=== PATIENT | male | born 1935 | race Caucasian/White ===

== ENCOUNTER → 2016-05-21 | Outpatient (REF) | payer MEDICARE ==
[2016-05-21 17:02] LABS: MEAN CORPUSCULAR HEMOGLOBIN 33.5 pg (27.0-33.0); MEAN CORPUSCULAR HGB CONC 34.7 g/dl (32.0-36.5); MEAN CORPUSCULAR VOLUME 96.5 fl (80.0-96.0); WHITE BLOOD COUNT 6.9 K/mm3 (4.0-10.0)
[2016-05-21 17:13] LABS: ALBUMIN 3.9 GM/DL (3.2-5.2); ALBUMIN/GLOBULIN RATIO 1.22 (1.00-1.93); ALKALINE PHOSPHATASE 99 U/L (45-117); ALT/SGPT 29 U/L (12-78); ANION GAP 5 MEQ/L (8-16); AST/SGOT 24 U/L (15-37); BILIRUBIN,TOTAL 0.8 MG/DL (0.2-1.0); BLOOD UREA NITROGEN 17 MG/DL (7-18); CALCIUM LEVEL 9.5 MG/DL (8.8-10.2); CARBON DIOXIDE LEVEL 30 MEQ/L (21-32); CHLORIDE LEVEL 104 MEQ/L (98-107); CHOLESTEROL LEVEL 128 MG/DL (<200); GLOMERULAR FILTRATION RATE > 60.0 (>42); GLUCOSE, FASTING 102 MG/DL (83-110); POTASSIUM SERUM 4.6 MEQ/L (3.5-5.1); SODIUM LEVEL 139 MEQ/L (136-145); TOTAL PROTEIN 7.1 GM/DL (6.4-8.2); TRIGLYCERIDES LEVEL 77 MG/DL (<150)
== END ==
LOC: M SFHCCAPE 07:29
PROVIDERS: ATTEND Family Medicine
DX: M35.3 Polymyalgia rheumatica (principal); I11.9 Hypertensive heart disease without heart failure; E78.2 Mixed hyperlipidemia; Z12.5 Encounter for screening for malignant neoplasm of prostate
CPT/HCPCS: 36415; 80053; 80061; 85027; 85652; G0103

== ENCOUNTER → 2016-07-07 | Outpatient (CLI) | payer MEDICARE ==
[~2016-07-07] MED LIST: GASTROGRAFIN SOLUTION 30ML (Q9963) As Ordered ONE; ISOVUE-370 76% 100ML VIAL (Q9967) As Ordered ONE
--- NOTE | 2016-07-07 17:55 | REP ---
CT ABDOMEN: HISTORY: Inguinal nerve entrapment syndrome. COMPARISON: None. CONTRAST: 100 mL of Isovue-370 The lung bases are within normal limits for the patient's age showing basilar fibrotic change. There are no pleural or pericardial effusions. The liver, gallbladder, spleen, pancreas, adrenal glands and kidneys are within normal limits. The abdominal aorta and periaortic regions are within normal limits. There is no free intraabdominal fluid or air. The bowel loops and their mesenteries are within normal limits. CT pelvis: There is no free pelvic fluid or air. There is no pelvic mass or adenopathy. The inguinal regions are within normal limits. There is sigmoid colon diverticulosis. There is corpora amylacea. Bone window technique throughout the exam shows age-related spinal degenerative changes. Age-related sacroiliac joint degenerative changes are also present, left greater than right. IMPRESSION: There is no acute intraabdominal or intrapelvic disease. There is no roque evidence of an inguinal mass, however, there are multiple vessels within the left inguinal ring, which are mildly dilated and could possibly be secondary to the patient's symptoms. It cannot be stated with certainty and needs to be correlated clinically. The finding is a very soft CT finding. Other findings as described above. Signed by Yuriy Magallon DO 07/07/2016 06:04 P
== END ==
LOC: M RAD 14:34
PROVIDERS: ATTEND Family Medicine
DX: G57.80 Other specified mononeuropathies of unspecified lower limb (principal); R15.9 Full incontinence of feces
CPT/HCPCS: 74177; Q9963; Q9967

== ENCOUNTER → 2016-08-06 | Outpatient (CLI) | payer MEDICARE ==
[~2016-08-06] VITALS: Ht 182.9 cm; Wt 73.9 kg
[~2016-08-06] MED LIST changes: +ASPI1TAB PO; +ATOR40TA75 PO; +FLUOROURACIL TOP; -GASTROGRAFIN SOLUTION 30ML (Q9963) As Ordered ONE; -ISOVUE-370 76% 100ML VIAL (Q9967) As Ordered ONE; +LATA5OPD OU; +LISI10TA4 PO; +MELO7.5T7 PO; +NS 1,000 ML IV ONE; +OMEP20CA3 PO; +PROPOFOL 200 MG/20 ML VIAL As Ordered ONE; +RAPA8CAP PO; +TIMO0.5S29 OU; +VITA100067 PO; +VITA500T3 PO
--- NOTE | 2016-08-06 14:36 | ROOR ---
Patient Name: Ac Barnett Procedure Date: 08/06/2016 2:17 PM Date of : 1935 Age: 81 Room: [facility] Gender: Male Note Status: Finalized Procedure: Colonoscopy Indications: Screening for colorectal malignant neoplasm Providers: Ricardo Portillo Jr, MD Referring MD: Horace Tran MD Requesting Provider: Medicines: Propofol per Anesthesia Complications: No immediate complications. Procedure: Pre-Anesthesia Assessment: - Prior to the procedure, a History and Physical was performed, and patient medications and allergies were reviewed. The patient is competent. The risks and benefits of the procedure and the sedation options and risks were discussed with the patient. All questions were answered and informed consent was obtained. Patient identification and proposed procedure were verified by the physician and the nurse in the pre-procedure area and in the procedure room. Mental Status Examination: alert and oriented. Airway Examination: normal oropharyngeal airway and neck mobility. Respiratory Examination: clear to auscultation. CV Examination: normal. ASA Grade Assessment: II - A patient with mild systemic disease. After reviewing the risks and benefits, the patient was deemed in satisfactory condition to undergo the procedure. The anesthesia plan was to use moderate sedation / analgesia (conscious sedation). Immediately prior to administration of medications, the patient was re-assessed for adequacy to receive sedatives. The heart rate, respiratory rate, oxygen saturations, blood pressure, adequacy of pulmonary ventilation, and response to care were monitored throughout the procedure. The physical status of the patient was re-assessed after the procedure. The Colonoscope was introduced through the anus and advanced to the cecum, identified by appendiceal orifice and ileocecal valve. The colonoscopy was performed without difficulty. The patient tolerated the procedure well. The quality of the bowel preparation was adequate and good. Findings: The perianal and digital rectal examinations were normal. Pertinent negatives include normal sphincter tone, no palpable rectal lesions and no anal lesion or abnormality was detected. Multiple small and large-mouthed diverticula were found in the sigmoid colon. Scattered small and large-mouthed diverticula were found in the descending colon, transverse colon and ascending colon. The rectum, recto-sigmoid colon, cecum, appendiceal orifice and ileocecal valve appeared normal. Impression: - Diverticulosis in the sigmoid colon. - Diverticulosis in the descending colon, in the transverse colon and in the ascending colon. - The rectum, recto-sigmoid colon, cecum, appendiceal orifice and ileocecal valve are normal. - No specimens collected. Recommendation: - Discharge patient to home (ambulatory). - Repeat colonoscopy in 10 years for screening purposes. Ricardo Portillo MD Ricardo Portillo Jr, MD 08/06/2016 2:36:14 PM This report has been signed electronically. Number of Addenda: 0 Note Initiated On: 08/06/2016 2:17 PM Estimated Blood Loss: Estimated blood loss: none.
[2016-08-06 15:16] VITALS: BP 144/66
== END | disposition home or self-care (01) ==
LOC: M OPP 13:39
PROVIDERS: ATTEND Surgery
DX: Z12.11 Encounter for screening for malignant neoplasm of colon (principal); K57.30 Diverticulosis of large intestine without perforation or abscess without bleeding; I10 Essential (primary) hypertension; E78.5 Hyperlipidemia, unspecified; R12 Heartburn; K21.9 Gastro-esophageal reflux disease without esophagitis; N40.1 Benign prostatic hyperplasia with lower urinary tract symptoms; R15.1 Fecal smearing; H91.90 Unspecified hearing loss, unspecified ear; Z88.0 Allergy status to penicillin; Z88.2 Allergy status to sulfonamides; Z88.8 Allergy status to other drugs, medicaments and biological substances; Z79.82 Long term (current) use of aspirin; Z79.899 Other long term (current) drug therapy

== ENCOUNTER → 2017-05-24 | Outpatient (REF) | payer MEDICARE ==
[2017-05-24 16:50] LABS: HEMATOCRIT 42.7 % (42.0-52.0); HEMOGLOBIN 14.8 g/dl (13.5-17.5); MEAN CORPUSCULAR HEMOGLOBIN 33.3 pg (27.0-33.0); MEAN CORPUSCULAR HGB CONC 34.7 g/dl (32.0-36.5); PLATELET COUNT, AUTOMATED 158 10^3/uL (150-450); RED BLOOD COUNT 4.45 10^6/uL (4.30-6.10); RED CELL DISTRIBUTION WIDTH 12.1 % (11.5-14.5); WHITE BLOOD COUNT 6.8 10^3/uL (4.0-10.0)
[2017-05-24 17:15] LABS: ALBUMIN 3.9 GM/DL (3.2-5.2); ALBUMIN/GLOBULIN RATIO 1.26 (1.00-1.93); ALKALINE PHOSPHATASE 91 U/L (45-117); ALT/SGPT 23 U/L (12-78); ANION GAP 8 MEQ/L (8-16); AST/SGOT 24 U/L (7-37); BILIRUBIN,TOTAL 0.8 MG/DL (0.2-1.0); BLOOD UREA NITROGEN 14 MG/DL (7-18); CALCIUM LEVEL 8.9 MG/DL (8.8-10.2); CARBON DIOXIDE LEVEL 24 MEQ/L (21-32); CHLORIDE LEVEL 110 MEQ/L (98-107); CHOLESTEROL LEVEL 125 MG/DL (<200); CHOLESTEROL RISK RATIO 2.777 (<5); CREATININE FOR GFR 1.07 MG/DL (0.70-1.30); GLOMERULAR FILTRATION RATE > 60.0 (>35); GLUCOSE, FASTING 98 MG/DL (70-100); HDL CHOLESTEROL 45 MG/DL (>40); LDL CHOLESTEROL 61.4 MG/DL (<100); NON-HDL-C 80 MG/DL; POTASSIUM SERUM 4.4 MEQ/L (3.5-5.1); SODIUM LEVEL 142 MEQ/L (136-145); TRIGLYCERIDES LEVEL 93 MG/DL (<150)
[2017-05-24 17:17] LABS: VITAMIN B12 LEVEL 678 PG/ML (247-911)
== END ==
LOC: M SFHCCAPE 08:03
DX: D51.9 Vitamin B12 deficiency anemia, unspecified (principal); I11.9 Hypertensive heart disease without heart failure; E78.2 Mixed hyperlipidemia; Z12.5 Encounter for screening for malignant neoplasm of prostate
CPT/HCPCS: 82607

== ENCOUNTER → 2017-12-09 | Outpatient (REF) | payer MEDICARE ==
[~2017-12-09] MED LIST changes: -NS 1,000 ML IV ONE; -PROPOFOL 200 MG/20 ML VIAL As Ordered ONE
== END ==
LOC: M SFHCLERA 10:21
PROVIDERS: ATTEND Dermatology
DX: C44.42 Squamous cell carcinoma of skin of scalp and neck (principal); L82.0 Inflamed seborrheic keratosis

== ENCOUNTER → 2018-06-20 | Outpatient (REF) | payer MEDICARE ==
[~2018-06-20] MED LIST changes: -ASPI1TAB PO; +ASPI81TA26 PO; +LATA0.0013 OU; -LATA5OPD OU; -RAPA8CAP PO; +RAPA8CAP4 PO
[2018-06-20 17:13] LABS: HEMATOCRIT 41.9 % (42.0-52.0); HEMOGLOBIN 14.4 g/dl (13.5-17.5); MEAN CORPUSCULAR HEMOGLOBIN 33.3 pg (27.0-33.0); MEAN CORPUSCULAR HGB CONC 34.4 g/dl (32.0-36.5); PLATELET COUNT, AUTOMATED 167 10^3/uL (150-450); RED BLOOD COUNT 4.32 10^6/uL (4.30-6.10); WHITE BLOOD COUNT 6.4 10^3/uL (4.0-10.0)
[2018-06-20 17:28] LABS: ALBUMIN 3.6 GM/DL (3.2-5.2); ALT/SGPT 26 U/L (12-78); BILIRUBIN,TOTAL 0.5 MG/DL (0.2-1.0); BLOOD UREA NITROGEN 15 MG/DL (7-18); CALCIUM LEVEL 8.7 MG/DL (8.8-10.2); CARBON DIOXIDE LEVEL 28 MEQ/L (21-32); CHLORIDE LEVEL 107 MEQ/L (98-107); CHOLESTEROL LEVEL 135 MG/DL (<200); CHOLESTEROL RISK RATIO 2.872 (<5); CREATININE FOR GFR 0.99 MG/DL (0.70-1.30); FREE T4 0.93 NG/DL (0.76-1.46); GLOMERULAR FILTRATION RATE > 60.0 (>35); GLUCOSE, FASTING 89 MG/DL (70-100); HDL CHOLESTEROL 47 MG/DL (>40); LDL CHOLESTEROL 62 MG/DL (<100); NON-HDL-C 88 MG/DL; POTASSIUM SERUM 4.3 MEQ/L (3.5-5.1); SODIUM LEVEL 142 MEQ/L (136-145); TOTAL PROTEIN 6.7 GM/DL (6.4-8.2); TRIGLYCERIDES LEVEL 132 MG/DL (<150)
== END ==
LOC: M SFHCCAPE 07:34
PROVIDERS: ATTEND Family Medicine
DX: D51.9 Vitamin B12 deficiency anemia, unspecified (principal); I11.9 Hypertensive heart disease without heart failure; G47.9 Sleep disorder, unspecified; E78.2 Mixed hyperlipidemia; Z12.5 Encounter for screening for malignant neoplasm of prostate
CPT/HCPCS: 80053; 80061; 84439; 84443; 85027; G0103

== ENCOUNTER → 2018-06-23 | Outpatient (CLI) | payer MEDICARE ==
[~2018-06-23] MED LIST changes: +GASTROGRAFIN SOLUTION 30ML (Q9963) As Ordered ONE; +ISOVUE-370 76% 100ML VIAL (Q9967) As Ordered ONE
--- NOTE | 2018-06-23 15:39 | REP ---
CT study of the abdomen and pelvis with IV and oral contrast: History: Generalized abdomen pain. Comparison study: July 07, 2016. CT contrast dose: 100 ml of intravenous Isovue 370. CT findings: Preliminary digital chaser helper radiograph is unremarkable. The lung bases show no evidence of infiltrate or effusion. The liver is normal in size. No mass lesion is seen. There is a tiny cyst in the dome of the liver in the right lobe, unchanged. Spleen is normal in size and homogeneous in texture. Normal adrenal glands are seen bilaterally. There is a fairly large descending duodenal diverticulum. No pancreatic lesion is seen. The gallbladder shows no abnormality. The kidneys enhance symmetrically. No evidence of urinary tract calculus. There is moderate stool throughout the colon. No small bowel dilation or obstructive lesion is seen. The appendix is surgically absent. There is left colonic diverticulosis. There is no inflammatory change to suggest acute diverticulitis. There is no evidence of colonic mass lesion. The prostate is somewhat enlarged elevating the base of the urinary bladder. Bladder torres are very slightly thickened. Seminal vesicles are unremarkable. No abdominal wall defect is seen. There are degenerative disc changes in the lumbar spine. No acute bony abnormality. Vascular calcification is noted. There is a anatomic arterial variant in that the left gastric artery takes a direct aortic origin. SMA, renal arteries, and LINDA are patent. No high-grade stenosis is seen. Impression: Left colonic diverticulosis without evidence of diverticulitis. The appendix is surgically absent. There is a very small hiatal hernia. The left gastric artery takes a direct aortic origin which is a normal variant. Electronically Signed by Abbe Yanes MD 06/23/2018 08:17 P
== END ==
LOC: M RAD 10:57
PROVIDERS: ATTEND Surgery
DX: K44.9 Diaphragmatic hernia without obstruction or gangrene (principal); K57.30 Diverticulosis of large intestine without perforation or abscess without bleeding; Z90.49 Acquired absence of other specified parts of digestive tract
CPT/HCPCS: 74177; Q9963; Q9967

== ENCOUNTER → 2018-07-05 | Outpatient (REF) | payer MEDICARE, BC ==
[~2018-07-05] MED LIST changes: -GASTROGRAFIN SOLUTION 30ML (Q9963) As Ordered ONE; -ISOVUE-370 76% 100ML VIAL (Q9967) As Ordered ONE
[2018-07-05 13:26] LABS: APPEARANCE, URINE CLEAR (CLEAR); BACTERIA, URINE AUTO NEGATIVE (NEGATIVE); BILIRUBIN, URINE AUTO NEGATIVE (NEGATIVE); BLOOD, URINE BLOOD NEGATIVE (NEGATIVE); COLOR, URINE YELLOW (YELLOW); GLUCOSE, URINE (UA) AUTO NEGATIVE (NEGATIVE); KETONE, URINE AUTO TRACE mg/dL (NEGATIVE); LEUKOCYTE ESTERASE, URINE AUTO TRACE (NEGATIVE); MUCUS, URINE SMALL (NEGATIVE); NITRITE, URINE AUTO NEGATIVE (NEGATIVE); PROTEIN, URINE AUTO NEGATIVE (NEGATIVE); RBC, URINE AUTO 0 /HPF (0-3); SPECIFIC GRAVITY URINE AUTO 1.024 (1.002-1.035); SQUAMOUS EPITHELIAL CELL UR AU 0 /HPF (0-6); WBC, URINE AUTO 0 /HPF (0-3)
== END ==
LOC: M SMT 13:00
PROVIDERS: ATTEND Nurse Practitioner Family
DX: N40.1 Benign prostatic hyperplasia with lower urinary tract symptoms (principal)
CPT/HCPCS: 51798; 81001; 87086; G0463

== ENCOUNTER → 2018-08-22 | Outpatient (REF) | payer BC ==
[~2018-08-22] MED LIST changes: +CYAN500T8 PO; +OMEP1CAP73 PO; -OMEP20CA3 PO; -VITA500T3 PO
== END ==
LOC: M SFHCPLAZ 12:53
PROVIDERS: ATTEND Dermatology
DX: C44.42 Squamous cell carcinoma of skin of scalp and neck (principal)

== ENCOUNTER → 2018-11-01 | Outpatient (REF) | payer BC ==
[~2018-11-01] MED LIST changes: -OMEP1CAP73 PO; +OMEP20CA4 PO
== END ==
LOC: M SFHCPLAZ 20:24
PROVIDERS: ATTEND Dermatology
DX: C44.42 Squamous cell carcinoma of skin of scalp and neck (principal)

== ENCOUNTER → 2018-12-02 | Outpatient (REF) | payer BC | LOC: M SFHCADAM 15:56 | PROVIDERS: ATTEND Family Medicine | DX: R19.7 Diarrhea, unspecified (principal) ==

== ENCOUNTER → 2019-06-13 | Outpatient (REF) | payer BC ==
[~2019-06-13] MED LIST changes: +OMEP1CAP73 PO; -OMEP20CA4 PO
[2019-06-13 11:53] LABS: ALT/SGPT 32 U/L (12-78); BILIRUBIN,TOTAL 0.8 MG/DL (0.2-1.0); BLOOD UREA NITROGEN 12 MG/DL (7-18); CALCIUM LEVEL 9.6 MG/DL (8.8-10.2); CARBON DIOXIDE LEVEL 28 MEQ/L (21-32); CHLORIDE LEVEL 105 MEQ/L (98-107); CHOLESTEROL LEVEL 145 MG/DL (<200); CHOLESTEROL RISK RATIO 2.843 (<5); CREATININE FOR GFR 0.92 MG/DL (0.70-1.30); GLOMERULAR FILTRATION RATE > 60.0 (>35); GLUCOSE, FASTING 93 MG/DL (70-100); HDL CHOLESTEROL 51 MG/DL (>40); LDL CHOLESTEROL 80 MG/DL (<100); NON-HDL-C 94 MG/DL; POTASSIUM SERUM 4.7 MEQ/L (3.5-5.1); SODIUM LEVEL 140 MEQ/L (136-145); TOTAL PROTEIN 7.2 GM/DL (6.4-8.2); TRIGLYCERIDES LEVEL 72 MG/DL (<150)
[2019-06-13 11:55] LABS: VITAMIN B12 LEVEL 897 PG/ML (247-911)
[2019-06-13 12:01] LABS: HEMATOCRIT 45.9 % (42.0-52.0); HEMOGLOBIN 15.6 g/dl (13.5-17.5); MEAN CORPUSCULAR HEMOGLOBIN 34.1 pg (27.0-33.0); MEAN CORPUSCULAR VOLUME 100.2 fl (80.0-96.0); PLATELET COUNT, AUTOMATED 165 10^3/uL (150-450); RED BLOOD COUNT 4.58 10^6/uL (4.30-6.10)
[2019-06-13 12:18] LABS: HEMOGLOBIN A1c 5.4 %
[2019-06-13 12:29] LABS: ERYTHROCYTE SEDIMENTATION RATE 7 mm/hr (0-20)
== END ==
LOC: M SFHCCLAY 08:07
PROVIDERS: ATTEND Family Medicine
DX: R19.7 Diarrhea, unspecified (principal); D51.9 Vitamin B12 deficiency anemia, unspecified; M06.4 Inflammatory polyarthropathy; I11.9 Hypertensive heart disease without heart failure; I73.9 Peripheral vascular disease, unspecified; E74.9 Disorder of carbohydrate metabolism, unspecified; E78.2 Mixed hyperlipidemia

== ENCOUNTER → 2019-06-21 | Outpatient (REF) | payer BC | LOC: M LAB REF 18:08 | PROVIDERS: ATTEND Dermatology | DX: L57.0 Actinic keratosis (principal) ==

== ENCOUNTER → 2019-07-28 | Outpatient (CLI) | payer MEDICARE ==
[~2019-07-28] MED LIST changes: +CYAN500T14 PO; -CYAN500T8 PO; +LISI10TA22 PO; -LISI10TA4 PO
--- NOTE | 2019-07-28 12:54 | REP ---
Bilateral lower extremity arterial Doppler ultrasound: History: Pain in the legs. Findings: Ankle brachial indices could not be accomplished in either lower extremity due to noncompressible vessels. Atherosclerotic vascular calcification is observed bilaterally. There is no evidence of high-grade stenosis. Triphasic and biphasic waveforms are noted in the arterial Doppler tracings bilaterally. Right lower extremity arterial Doppler velocity chart: CF A 63 cm/S Profunda 75 Proximal SFA 88 Mid SFA 85 Distal SFA 71 Popliteal 38 Proximal AT A 34 Tibioperoneal trunk 48 Proximal BUSINESS PROJECT MANAGER 55 Distal BUSINESS PROJECT MANAGER 55 Distal AT A 53 Left lower extremity arterial Doppler velocity chart: CF A 53 cm/S Profunda 57 Proximal SFA 78 Mid SFA 93 Distal SFA 73 Popliteal 45 Proximal AT A 24 Via peroneal trunk 61 Proximal BUSINESS PROJECT MANAGER 56 Distal BUSINESS PROJECT MANAGER 27 Distal AT A 32 Electronically Signed by Abbe Yanes MD 07/28/2019 12:44 P
== END ==
LOC: M RAD 11:06
PROVIDERS: ATTEND Physician Assistant
DX: M79.606 Pain in leg, unspecified (principal); I70.203 Unspecified atherosclerosis of native arteries of extremities, bilateral legs

== ENCOUNTER → 2019-11-15 | Outpatient (CLI) | payer MEDICARE ==
[~2019-11-15] MED LIST changes: -CYAN500T14 PO; +CYAN500T8 PO; -LISI10TA22 PO; +LISI10TA4 PO
--- NOTE | 2019-11-21 08:53 | REP ---
BILATERAL LOWER EXTREMITY ARTERIAL DOPPLER ULTRASOUND HISTORY: Atherosclerosis. Pain in bilateral lower extremities. FINDINGS: Ankle brachial indices could not be accomplished on either side due to noncompressible vessels. Fairly heavy vascular calcification is observed. Biphasic and triphasic relatively normal waveforms are noted throughout. Monophasic waveform is observed in the arterial tracing of the dorsalis pedis artery on the left. Low velocity flow is observed in the distal anterior tibial arteries and the dorsalis pedis arteries bilaterally. No focal stenosis appreciated. Incidental note is made of echogenic material consistent with mixed acute and chronic thrombus in the right lesser saphenous vein consistent with superficial vein thrombophlebitis. VELOCITY CHART BILATERAL LOWER EXTREMITIES RIGHT PSV (cm/s) LEFT PSV (cm/s) REED POLISHER 63 61 Profunda 87 64 Proximal SFA 77 91 Mid SFA 86 78 Distal SFA 61 61 Popliteal 40/58 32/46 Proximal YANI 118/60 108 Tibioperoneal trunk 42 33 Proximal ALLERGIST 46 33 Distal ALLERGIST 69 27 Distal YANI 14 21 DPA 11 7 MTDD
== END ==
LOC: M RAD 12:57
PROVIDERS: ATTEND Physician Assistant
DX: I73.9 Peripheral vascular disease, unspecified (principal); M79.606 Pain in leg, unspecified
CPT/HCPCS: 17000; 17003; 93925; G0463

== ENCOUNTER → 2019-11-22 | Outpatient (CLI) | payer MEDICARE ==
--- NOTE | 2019-11-27 11:43 | REP ---
DATE: 11/22/2019 BILATERAL LOWER EXTREMITY DOPPER ULTRASOUND CLINICAL: Follow up thrombophlebitis. TECHNIQUE: Real-time quiroz scale and color Doppler evaluation using linear high frequency transducer to the bilateral lower extremities. COMPARISON: 11/15/2019 FINDINGS: Ultrasound examination of the bilateral lower extremity deep venous structures demonstrates normal compressibility, flow and wave patterns in response to respirations and augmentation from the common femoral veins to the popliteal veins without evidence for deep venous thrombosis. Partially occlusive/occlusive thrombus in the mid to distal right lesser saphenous vein is again noted and essentially unchanged, although the previously suggested arterial flow through this area is no longer appreciated. IMPRESSION: 1. No evidence for deep venous thrombosis to the bilateral lower extremity. 2. 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 MTDD
== END ==
LOC: M RAD 09:54
PROVIDERS: ATTEND Physician Assistant
DX: I87.2 Venous insufficiency (chronic) (peripheral) (principal); I82.811 Embolism and thrombosis of superficial veins of right lower extremity

== ENCOUNTER → 2019-12-05 | Outpatient (CLI) | payer MEDICARE, BC ==
--- NOTE | 2019-12-05 16:07 | REP ---
INDICATION: BACK PAIN. COMPARISON: None. TECHNIQUE: Five views obtained. FINDINGS: There is no acute compression fracture. There is straightening of the normal lumbar lordosis. There is slight retrolisthesis of L2 on L3. There is moderate spurring of lower thoracic vertebral bodies. There is moderate spurring of L3 through L5. There is moderate disc space narrowing at L2-3 and L3-4 with mild subchondral sclerosis. There is moderately severe narrowing with subchondral sclerosis at L4-5. There is mild narrowing at L5-S1 disc space. There is sclerosis and spurring at the posterior facet joints of L3-4 through L5-S1. The posterior elements are intact. Diffuse vascular calcifications are present. IMPRESSION: No acute compression fracture. Degenerative changes as discussed in detail above, most significantly at the L4-5 level. <Electronically signed by Jonnathan Christine > 12/05/19 [id number]
== END ==
LOC: M ADAMS 14:09
PROVIDERS: ATTEND Family Medicine
DX: M51.36 Other intervertebral disc degeneration, lumbar region (principal); M51.37 Other intervertebral disc degeneration, lumbosacral region; M54.5 Low back pain

== ENCOUNTER → 2020-06-12 | Outpatient (REF) | payer BC, MEDICARE ==
[~2020-06-12] MED LIST changes: +CYAN500T14 PO; -CYAN500T8 PO; +LISI10TA22 PO; -LISI10TA4 PO
[2020-06-12 16:41] LABS: HEMATOCRIT 44.4 % (42.0-52.0); HEMOGLOBIN 14.8 g/dl (13.5-17.5); MEAN CORPUSCULAR HEMOGLOBIN 33.2 pg (27.0-33.0); MEAN CORPUSCULAR HGB CONC 33.3 g/dl (32.0-36.5); MEAN CORPUSCULAR VOLUME 99.6 fl (80.0-96.0); PLATELET COUNT, AUTOMATED 166 10^3/uL (150-450); RED BLOOD COUNT 4.46 10^6/uL (4.30-6.10); WHITE BLOOD COUNT 5.5 10^3/uL (4.0-10.0)
[2020-06-12 17:05] LABS: ALBUMIN 3.9 GM/DL (3.2-5.2); ALT/SGPT 30 U/L (12-78); BILIRUBIN,TOTAL 0.8 MG/DL (0.2-1.0); BLOOD UREA NITROGEN 17 MG/DL (7-18); CALCIUM LEVEL 9.5 MG/DL (8.8-10.2); CARBON DIOXIDE LEVEL 29 MEQ/L (21-32); CHLORIDE LEVEL 107 MEQ/L (98-107); CHOLESTEROL LEVEL 127 MG/DL (<200); CREATININE FOR GFR 0.91 MG/DL (0.70-1.30); GLOMERULAR FILTRATION RATE > 60.0 (>35); GLUCOSE, FASTING 82 MG/DL (70-100); HDL CHOLESTEROL 50 MG/DL (>40); LDL CHOLESTEROL 63 MG/DL (<100); NON-HDL-C 77 MG/DL; SODIUM LEVEL 140 MEQ/L (136-145); TOTAL PROTEIN 6.9 GM/DL (6.4-8.2); TRIGLYCERIDES LEVEL 71 MG/DL (<150)
[2020-06-12 17:10] LABS: VITAMIN B12 LEVEL 544 PG/ML (247-911)
[2020-06-12 17:50] LABS: ERYTHROCYTE SEDIMENTATION RATE 7 mm/hr (0-20)
[2020-06-12 18:06] LABS: HEMOGLOBIN A1c 5.4 %
== END ==
LOC: M SFHCCAPE 08:16
PROVIDERS: ATTEND Family Medicine
DX: D51.9 Vitamin B12 deficiency anemia, unspecified (principal); I11.9 Hypertensive heart disease without heart failure; M35.3 Polymyalgia rheumatica; E74.9 Disorder of carbohydrate metabolism, unspecified; E78.2 Mixed hyperlipidemia; Z12.5 Encounter for screening for malignant neoplasm of prostate
CPT/HCPCS: 80053; 80061; 82607; 83036; 85027; 85652; G0103

== ENCOUNTER → 2020-06-13 | Outpatient (CLI) | payer MEDICARE ==
--- NOTE | 2020-06-13 14:09 | REP ---
INDICATION: ATHSCL ARTERIES OF EXTRM W/ CLAUDICATION. COMPARISON: Comparison study November 15, 2019.. TECHNIQUE: Bilateral lower extremity arterial Doppler ultrasound. FINDINGS: Ankle brachial indices could not be calculated due to noncompressible vessels bilaterally in the lower extremities. Heavily calcified vessels are observed diffusely. Relatively normal triphasic and biphasic arterial Doppler waveforms are noted throughout both lower extremities. No high-grade stenosis or definite occlusion is observed on either side. We were unable to show flow in the proximal posterior tibial artery on the left but flow was seen in the mid and distal segments. This may be due to calcific plaquing. Right lower extremity arterial Doppler velocity chart: Right AUTO TRAVEL COUNSELOR PSV 49 cm/S Profundal 61 Proximal SFA 68 Mid SFA 67 Distal SFA 45 Popliteal 26 Proximal YANI 37 Tibial-peroneal trunk 31 Proximal MIDDLE SCHOOL PRINCIPAL 51 Distal MIDDLE SCHOOL PRINCIPAL 39 Distal YANI 73 Left lower extremity arterial Doppler velocity chart: Left AUTO TRAVEL COUNSELOR PSV 63 cm/S Profundal 53 Proximal SFA 63 Mid SFA 75 Distal SFA 56 Popliteal 62 Proximal YANI 44 Tibial-peroneal trunk thirty-nine Proximal MIDDLE SCHOOL PRINCIPAL unable to show flow Distal MIDDLE SCHOOL PRINCIPAL 17 Distal YANI 38 IMPRESSION: Calcific plaquing as noted above diffusely. No high-grade stenosis or occlusion is definitely identified. Thrombus is again noted in the right lesser saphenous vein. <Electronically signed by Dean Yanes > 06/13/20 [id number]
== END ==
LOC: M RAD 10:23
PROVIDERS: ATTEND Physician Assistant
DX: I70.213 Atherosclerosis of native arteries of extremities with intermittent claudication, bilateral legs (principal); I82.811 Embolism and thrombosis of superficial veins of right lower extremity

== ENCOUNTER → 2021-07-02 | Outpatient (REF) | payer MEDICARE ==
[2021-07-02 16:23] LABS: HEMATOCRIT 43.2 % (42.0-52.0); HEMOGLOBIN 14.8 g/dl (13.5-17.5); MEAN CORPUSCULAR HEMOGLOBIN 34.1 pg (27.0-33.0); MEAN CORPUSCULAR HGB CONC 34.3 g/dl (32.0-36.5); MEAN CORPUSCULAR VOLUME 99.5 fl (80.0-96.0); PLATELET COUNT, AUTOMATED 176 10^3/uL (150-450); RED BLOOD COUNT 4.34 10^6/uL (4.30-6.10); WHITE BLOOD COUNT 5.5 10^3/uL (4.0-10.0)
[2021-07-02 16:50] LABS: HEMOGLOBIN A1c 5.3 %
[2021-07-02 16:57] LABS: ALBUMIN 3.8 GM/DL (3.2-5.2); ALT/SGPT 33 U/L (12-78); BILIRUBIN,TOTAL 0.8 MG/DL (0.2-1.0); BLOOD UREA NITROGEN 14 MG/DL (7-18); CALCIUM LEVEL 9.1 MG/DL (8.8-10.2); CARBON DIOXIDE LEVEL 27 MEQ/L (21-32); CHLORIDE LEVEL 110 MEQ/L (98-107); CHOLESTEROL LEVEL 124 MG/DL (<200); CHOLESTEROL RISK RATIO 2.755 (<5); CREATININE FOR GFR 0.97 MG/DL (0.70-1.30); GLOMERULAR FILTRATION RATE > 60.0 (>35); GLUCOSE, FASTING 78 MG/DL (70-100); HDL CHOLESTEROL 45 MG/DL (>40); LDL CHOLESTEROL 52 MG/DL (<100); NON-HDL-C 79 MG/DL; POTASSIUM SERUM 4.7 MEQ/L (3.5-5.1); SODIUM LEVEL 140 MEQ/L (136-145); TOTAL PROTEIN 6.8 GM/DL (6.4-8.2); TRIGLYCERIDES LEVEL 137 MG/DL (<150)
[2021-07-02 16:59] LABS: VITAMIN B12 LEVEL 605 PG/ML (247-911)
== END ==
LOC: M SFHCCAPE 08:20
PROVIDERS: ATTEND Family Medicine
DX: D51.9 Vitamin B12 deficiency anemia, unspecified (principal); I73.9 Peripheral vascular disease, unspecified; E74.9 Disorder of carbohydrate metabolism, unspecified; I11.9 Hypertensive heart disease without heart failure; E78.2 Mixed hyperlipidemia; M35.3 Polymyalgia rheumatica; N42.31 Prostatic intraepithelial neoplasia; Z12.5 Encounter for screening for malignant neoplasm of prostate; Z79.899 Other long term (current) drug therapy
CPT/HCPCS: 80053; 80061; 82607; 83036; 85027; 86140; G0103

== ENCOUNTER → 2021-11-19 | Outpatient (REF) | payer MEDICARE ==
[2021-11-19 18:03] LABS: HEMATOCRIT 42.8 % (42.0-52.0); HEMOGLOBIN 14.4 g/dl (13.5-17.5); MEAN CORPUSCULAR HEMOGLOBIN 33.4 pg (27.0-33.0); MEAN CORPUSCULAR HGB CONC 33.6 g/dl (32.0-36.5); MEAN CORPUSCULAR VOLUME 99.3 fl (80.0-96.0); PLATELET COUNT, AUTOMATED 213 10^3/uL (150-450); RED BLOOD COUNT 4.31 10^6/uL (4.30-6.10); WHITE BLOOD COUNT 6.6 10^3/uL (4.0-10.0)
[2021-11-19 18:42] LABS: BLOOD UREA NITROGEN 18 MG/DL (7-18); CALCIUM LEVEL 9.8 MG/DL (8.8-10.2); CARBON DIOXIDE LEVEL 27 MEQ/L (21-32); CHLORIDE LEVEL 107 MEQ/L (98-107); CREATININE FOR GFR 1.22 MG/DL (0.70-1.30); FERRITIN 102 NG/ML (26-388); GLOMERULAR FILTRATION RATE > 60.0 (>35); GLUCOSE, FASTING 106 MG/DL (70-100); IRON (FE) 94 UG/DL (65-175); PERCENT SATURATION 32.6 % (19.7-50.0); POTASSIUM SERUM 4.6 MEQ/L (3.5-5.1); SODIUM LEVEL 139 MEQ/L (136-145); TOTAL IRON BINDING CAPACITY 288 UG/DL (250-450)
== END ==
LOC: M SFHCADAM 13:58
PROVIDERS: ATTEND Family Medicine
DX: E61.1 Iron deficiency (principal); I11.9 Hypertensive heart disease without heart failure

== ENCOUNTER → 2022-08-05 | Outpatient (REF) | payer MEDICARE ==
[~2022-08-05] MED LIST changes: +BICA50TA9 PO; +MELO7.5T35 PO; +TIMO0.5S20 OU; -TIMO0.5S29 OU; +XALA0.007 OU
[2022-08-05 17:31] LABS: ALKALINE PHOSPHATASE 95 U/L (46-116); ALT/SGPT 14 U/L (7.0-40); AST/SGOT < 8 U/L (<34); BILIRUBIN,TOTAL 0.5 MG/DL (0.3-1.2); BLOOD UREA NITROGEN 15 MG/DL (9-23); C REACTIVE PROTEIN QUANTITATIV < 0.40 MG/DL (<1.0); CALCIUM LEVEL 9.5 MG/DL (8.3-10.6); CARBON DIOXIDE LEVEL 27 MMOL/L (20-31); CHLORIDE LEVEL 108 MMOL/L (98-107); CHOLESTEROL LEVEL 153 MG/DL (<200); CHOLESTEROL RISK RATIO 3.91 (<5); GLOMERULAR FILTRATION RATE > 60.0 (>35); GLUCOSE, FASTING 88 MG/DL (74-106); HDL CHOLESTEROL 39.1 MG/DL (>40); HEMATOCRIT 40.6 % (42.0-52.0); HEMOGLOBIN 13.9 g/dl (13.5-17.5); LDL CHOLESTEROL 83.3 MG/DL (<100); MEAN CORPUSCULAR HEMOGLOBIN 33.1 pg (27.0-33.0); MEAN CORPUSCULAR HGB CONC 34.2 g/dl (32.0-36.5); MEAN CORPUSCULAR VOLUME 96.7 fl (80.0-96.0); NON-HDL-C 113.9 MG/DL; PLATELET COUNT, AUTOMATED 209 10^3/uL (150-450); POTASSIUM SERUM 4.2 MMOL/L (3.5-5.1); SODIUM LEVEL 141 MMOL/L (136-145); TOTAL IRON BINDING CAPACITY 278 UG/DL (250-425); TOTAL PROTEIN 6.8 G/DL (5.7-8.2); TRIGLYCERIDES LEVEL 153 MG/DL (<150); WHITE BLOOD COUNT 6.1 10^3/uL (4.0-10.0)
[2022-08-05 17:32] LABS: IRON (FE) 58 UG/DL (65-175); PERCENT SATURATION 20.9 % (19.7-50.0)
[2022-08-05 17:33] LABS: FERRITIN 121.2 NG/ML (10.5-307.3)
[2022-08-05 17:44] LABS: HEMOGLOBIN A1c 5.4 % (4.0-6.0)
[2022-08-05 17:55] LABS: INR 0.95; PROTHROMBIN TIME 12.9 SECONDS (12.5-14.5)
== END ==
LOC: M SFHCCAPE 08:18
PROVIDERS: ATTEND Family Medicine
DX: I11.9 Hypertensive heart disease without heart failure (principal); E78.2 Mixed hyperlipidemia; E74.9 Disorder of carbohydrate metabolism, unspecified; M35.3 Polymyalgia rheumatica; E61.1 Iron deficiency; Z87.438 Personal history of other diseases of male genital organs; R33.9 Retention of urine, unspecified; Z79.899 Other long term (current) drug therapy

== ENCOUNTER → 2022-08-06 | Outpatient (REF) | payer MEDICARE | LOC: M SMT 13:28 | PROVIDERS: ATTEND Urology | DX: Z87.438 Personal history of other diseases of male genital organs (principal); R33.9 Retention of urine, unspecified ==

== ENCOUNTER → 2022-08-07 | Outpatient (CLI) | payer MEDICARE | LOC: M ADAMS 10:51 | PROVIDERS: ATTEND Family Medicine | DX: Z01.818 Encounter for other preprocedural examination (principal); I11.9 Hypertensive heart disease without heart failure; J98.4 Other disorders of lung ==

== ENCOUNTER 2022-08-14 06:10 | Day surgery (SDC) | payer MEDICARE, OTHER ==
[~2022-08-14] VITALS: Ht 182.9 cm; Wt 72.4 kg
[~2022-08-14 06:10] MED LIST changes: +ceFAZolin SOD 2 GM in IV 1 EA IV ONE
[2022-08-14] MEDS ORDERED: LR 1,000 ML IV SCH ×2 (06:55→08:35)
[2022-08-14] MEDS ORDERED: LIDOCAINE 2% 100MG/5ML SDV (FOR ANES.) As Ordered ONE (07:59)
[2022-08-14] MEDS ORDERED: ACETAMINOPHEN 1000MG 100ML IV BAG As Ordered ONE (07:59)
[2022-08-14] MEDS ORDERED: ONDANSETRON 4MG 2ML VIAL As Ordered ONE (07:59)
[2022-08-14] MEDS ORDERED: fentaNYL 100 MCG/2 ML INJECTION As Ordered ONE ×2 (07:59→08:06)
[2022-08-14] MEDS ORDERED: propofoL 200 MG/20 ML VIAL As Ordered ONE (07:59)
[2022-08-14] MEDS ORDERED: oxyCODONE 5MG TAB PO PRN (08:35)
[2022-08-14] MEDS ORDERED: fentaNYL 100 MCG/2 ML INJECTION IV PRN (08:35)
[2022-08-14] MEDS ORDERED: HYDROMORPHONE HCL 0.5 MG/ 0.5 ML SYRINGE IV PRN (08:35)
[2022-08-14] MEDS ORDERED: ONDANSETRON 4MG 2ML VIAL IV PRN (08:35)
[2022-08-14] MEDS ORDERED: OXYB5TAB10 PO (08:44)
[2022-08-14] MEDS ORDERED: LEVO1TAB39 PO (08:44)
[2022-08-14] MEDS ORDERED: PYRI1TAB5 PO (08:44)
[2022-08-14 09:50] VITALS: BP 149/68; TEMP 98.1; O2SAT 94
== END 2022-08-14 09:50 | disposition home or self-care (01) ==
LOC: M SDC 06:10
PROVIDERS: ATTEND Urology
DX: N40.1 Benign prostatic hyperplasia with lower urinary tract symptoms (principal); R33.9 Retention of urine, unspecified; I10 Essential (primary) hypertension; E78.5 Hyperlipidemia, unspecified; K21.9 Gastro-esophageal reflux disease without esophagitis; Z79.899 Other long term (current) drug therapy; Z88.0 Allergy status to penicillin; Z88.2 Allergy status to sulfonamides; Z88.8 Allergy status to other drugs, medicaments and biological substances
CPT/HCPCS: 52601; 88307; J0131; J0690; J1100; J2405; J3010

== ENCOUNTER 2022-08-17 19:26 | Emergency (ER) | payer MEDICARE, OTHER ==
[~2022-08-17] VITALS: Ht 182.9 cm; Wt 70.9 kg
[~2022-08-17 19:26] MED LIST changes: +LEVO1TAB39 PO; +OXYB5TAB10 PO; +PYRI1TAB5 PO; -ceFAZolin SOD 2 GM in IV 1 EA IV ONE
[2022-08-17 22:05] VITALS: BP 141/84; TEMP 98.3; O2SAT 99
== END 2022-08-17 22:08 | disposition home or self-care (01) ==
LOC: M ED 19:26
DX: R33.9 Retention of urine, unspecified (principal); I10 Essential (primary) hypertension; E78.5 Hyperlipidemia, unspecified; K21.9 Gastro-esophageal reflux disease without esophagitis; Z90.79 Acquired absence of other genital organ(s); Z79.899 Other long term (current) drug therapy; Z88.0 Allergy status to penicillin; Z88.2 Allergy status to sulfonamides; Z88.8 Allergy status to other drugs, medicaments and biological substances

== ENCOUNTER → 2022-10-22 | Outpatient (REF) | payer MEDICARE | LOC: M SFHCCAPE 09:46 | PROVIDERS: ATTEND Physician Assistant | DX: R33.8 Other retention of urine (principal) ==

== ENCOUNTER → 2023-06-22 | Outpatient (REF) | payer OTHER ==
[~2023-06-22] MED LIST changes: -OXYB5TAB10 PO; +OXYB5TAB14 PO
== END ==
LOC: M SFHCCAPE 09:47
PROVIDERS: ATTEND Urology
DX: C61 Malignant neoplasm of prostate (principal)

== ENCOUNTER → 2023-07-27 | Outpatient (REF) | payer OTHER ==
[~2023-07-27] MED LIST changes: +BICA50TA4 PO; -BICA50TA9 PO
[2023-07-27 19:11] LABS: HEMATOCRIT 38.7 % (42.0-52.0); HEMOGLOBIN 13.4 g/dl (13.5-17.5); MEAN CORPUSCULAR HEMOGLOBIN 34.3 pg (27.0-33.0); MEAN CORPUSCULAR HGB CONC 34.6 g/dl (32.0-36.5); PLATELET COUNT, AUTOMATED 198 10^3/uL (150-450); RED BLOOD COUNT 3.91 10^6/uL (4.30-6.10); WHITE BLOOD COUNT 6.8 10^3/uL (4.0-10.0)
[2023-07-27 19:35] LABS: C REACTIVE PROTEIN QUANTITATIV < 0.40 MG/DL (<1.0)
[2023-07-27 19:37] LABS: ALBUMIN 3.7 G/DL (3.2-5.2); ALKALINE PHOSPHATASE 87 U/L (46-116); ALT/SGPT 24 U/L (7.0-40); AST/SGOT 23 U/L (<34); BILIRUBIN,TOTAL 0.9 MG/DL (0.3-1.2); BLOOD UREA NITROGEN 13 MG/DL (9-23); CALCIUM LEVEL 9.9 MG/DL (8.3-10.6); CARBON DIOXIDE LEVEL 28 MMOL/L (20-31); CHLORIDE LEVEL 107 MMOL/L (98-107); CHOLESTEROL LEVEL 137 MG/DL (<200); CHOLESTEROL RISK RATIO 3.29 (<5); CREATININE FOR GFR 0.86 MG/DL (0.70-1.30); GLOMERULAR FILTRATION RATE > 60.0 (>35); GLUCOSE, FASTING 96 MG/DL (74-106); HDL CHOLESTEROL 41.6 MG/DL (>40); LDL CHOLESTEROL 71.6 MG/DL (<100); NON-HDL-C 95.4 MG/DL; POTASSIUM SERUM 4.4 MMOL/L (3.5-5.1); SODIUM LEVEL 141 MMOL/L (136-145); TOTAL PROTEIN 6.4 G/DL (5.7-8.2); TRIGLYCERIDES LEVEL 119 MG/DL (<150)
[2023-07-27 19:39] LABS: VITAMIN B12 LEVEL 496 PG/ML (211-911)
[2023-07-27 19:50] LABS: HEMOGLOBIN A1c 5.4 % (4.0-6.0)
== END ==
LOC: M SFHCCAPE 08:17
PROVIDERS: ATTEND Family Medicine
DX: E78.2 Mixed hyperlipidemia (principal); E74.9 Disorder of carbohydrate metabolism, unspecified; D51.9 Vitamin B12 deficiency anemia, unspecified; M35.3 Polymyalgia rheumatica; Z79.899 Other long term (current) drug therapy

== ENCOUNTER → 2023-09-02 | Outpatient (REF) | payer OTHER ==
[2023-09-02 20:03] LABS: BLOOD UREA NITROGEN 17 MG/DL (9-23); CREATININE FOR GFR 0.88 MG/DL (0.70-1.30); GLOMERULAR FILTRATION RATE > 60.0 (>35)
== END ==
LOC: M LABDRWCV 17:09
PROVIDERS: ATTEND Physical Medicine & Rehabilitation
DX: M75.41 Impingement syndrome of right shoulder (principal)

== ENCOUNTER → 2023-09-14 | Outpatient (CLI) | payer OTHER ==
[2023-09-14 13:09] LABS: PLATELET COUNT, AUTOMATED 213 10^3/uL (150-450)
[2023-09-14 13:24] LABS: INR 1.04; PARTIAL THROMBOPLASTIN TIME 25.1 SECONDS (24.8-34.2); PROTHROMBIN TIME 13.3 SECONDS (12.5-14.5)
== END ==
LOC: M WUC 11:13
PROVIDERS: ATTEND Physical Medicine & Rehabilitation
DX: Z01.812 Encounter for preprocedural laboratory examination (principal); Z79.899 Other long term (current) drug therapy

== ENCOUNTER → 2023-10-13 | Outpatient (REF) | payer OTHER | LOC: M SFHCDERM 18:01 | PROVIDERS: ATTEND Physician Assistant | DX: D04.4 Carcinoma in situ of skin of scalp and neck (principal) ==

== ENCOUNTER → 2024-10-03 | Outpatient (REF) | payer MEDICARE ==
[2024-10-03 12:59] LABS: PLATELET COUNT, AUTOMATED 207 10^3/uL (150-450)
[2024-10-03 13:20] LABS: ALT/SGPT 14.0 U/L (7.0-40); AST/SGOT 24.0 U/L (<34); CALCIUM LEVEL 10.0 MG/DL (8.3-10.6); CARBON DIOXIDE LEVEL 26.0 MMOL/L (20-31); CHLORIDE LEVEL 107.0 MMOL/L (98-107); CHOLESTEROL LEVEL 194.0 MG/DL (<200); CHOLESTEROL RISK RATIO 5.75 (<5); CREATININE FOR GFR 0.93 MG/DL (0.70-1.30); GLOMERULAR FILTRATION RATE 79.5 (>35); LDL CHOLESTEROL 123.3 MG/DL (<100); NON-HDL-C 160.3 MG/DL; POTASSIUM SERUM 4.6 MMOL/L (3.5-5.1); PROSTATIC SPECIFIC AG MONITOR 0.42 NG/ML (< 4.00); SODIUM LEVEL 144.0 MMOL/L (136-145); TRIGLYCERIDES LEVEL 185.0 MG/DL (<150)
== END ==
LOC: M SFHCCLAY 08:23
PROVIDERS: ATTEND Family Medicine
DX: N13.8 Other obstructive and reflux uropathy (principal); I11.9 Hypertensive heart disease without heart failure; E78.2 Mixed hyperlipidemia; N42.31 Prostatic intraepithelial neoplasia; Z79.899 Other long term (current) drug therapy

== ENCOUNTER → 2024-10-10 | Outpatient (REF) | payer MEDICARE | LOC: M SFHCDERM 08:02 | PROVIDERS: ATTEND Physician Assistant | DX: C44.329 Squamous cell carcinoma of skin of other parts of face (principal) ==

== ENCOUNTER → 2024-10-31 | Outpatient (REF) | payer MEDICARE | LOC: M SFHCDERM 18:11 | PROVIDERS: ATTEND Physician Assistant | DX: C44.629 Squamous cell carcinoma of skin of left upper limb, including shoulder (principal) ==

== ENCOUNTER 2024-12-02 10:25 | Emergency (ER) | payer MEDICARE ==
[~2024-12-02] VITALS: Ht 177.8 cm; Wt 73.3 kg
[2024-12-02 17:05] VITALS: BP 130/63; TEMP 97.6; O2SAT 96
[2024-12-02] MEDS: ACETAMINOPHEN 325 MG TAB PO ONE (17:15)
== END 2024-12-02 17:27 | disposition home or self-care (01) ==
LOC: M ED 10:25
DX: S22.42XA Multiple fractures of ribs, left side, initial encounter for closed fracture (principal); W01.198A Fall on same level from slipping, tripping and stumbling with subsequent striking against other object, initial encounter; J43.9 Emphysema, unspecified; M43.12 Spondylolisthesis, cervical region; M50.30 Other cervical disc degeneration, unspecified cervical region; I10 Essential (primary) hypertension; E03.9 Hypothyroidism, unspecified; Z88.0 Allergy status to penicillin; Z88.2 Allergy status to sulfonamides; Z88.8 Allergy status to other drugs, medicaments and biological substances; Z79.02 Long term (current) use of antithrombotics/antiplatelets; Z79.899 Other long term (current) drug therapy; Y92.9 Unspecified place or not applicable; Y93.89 Activity, other specified; Y99.9 Unspecified external cause status